=== PATIENT | male | born 1995 | race Caucasian/White ===

== ENCOUNTER 2016-06-25 14:40 | Emergency (ER) | payer OTHER ==
[2016-06-25 17:04] LABS: BASO % 0.2 % (0.0-1.0); EOS # 0.1 K/mm3 (0.0-0.50); EOS % 1.2 % (0.0-3.0); LARGE UNSTAINED CELL # 0.1 K/mm3 (0.0-0.4); LARGE UNSTAINED CELL % 1.2 % (0.0-4.0); LYMPH # 2.2 K/mm3 (1.5-6.5); LYMPH % 23.2 % (24.0-44.0); MEAN CORPUSCULAR HEMOGLOBIN 30.2 pg (27.0-33.0); MEAN CORPUSCULAR HGB CONC 34.7 g/dl (32.0-36.5); MEAN CORPUSCULAR VOLUME 86.8 fl (80.0-96.0); MONO # 0.4 K/mm3 (0.0-0.8); NEUTROPHILS # 6.5 K/mm3 (1.8-7.7); NEUTROPHILS % 70.2 % (36.0-66.0); PLATELET COUNT, AUTOMATED 350 k/mm3 (150-450); RED CELL DISTRIBUTION WIDTH 12.1 % (11.5-14.5); WHITE BLOOD COUNT 9.3 K/mm3 (4.0-10.0)
--- NOTE | 2016-06-25 17:09 | REP ---
Clinical: Abdominal pain. Technique: Single supine view of the abdomen and pelvis. Findings: Bowel gas pattern is nonspecific. No organomegaly. No abnormal calcifications. Skeletal structures are intact. Impression: Nonspecific abdominal radiograph. Signed by Ignacio Hong MD 06/25/2016 05:00 P
[2016-06-25 17:25] LABS: ALBUMIN/GLOBULIN RATIO 1.47 (1.00-1.93); ALKALINE PHOSPHATASE 94 U/L (45-117); ALT/SGPT 34 U/L (12-78); ANION GAP 10 MEQ/L (8-16); AST/SGOT 16 U/L (15-37); BILIRUBIN,DIRECT 0.2 MG/DL (0.0-0.2); BILIRUBIN,TOTAL 0.6 MG/DL (0.2-1.0); BLOOD UREA NITROGEN 14 MG/DL (7-18); CALCIUM LEVEL 9.5 MG/DL (8.5-10.1); CARBON DIOXIDE LEVEL 27 MEQ/L (21-32); CHLORIDE LEVEL 101 MEQ/L (98-107); CREATININE FOR GFR 0.83 MG/DL (0.70-1.30); GLUCOSE, FASTING 91 MG/DL (70-105); POTASSIUM SERUM 4.2 MEQ/L (3.5-5.1); SODIUM LEVEL 138 MEQ/L (136-145); TOTAL PROTEIN 8.4 GM/DL (6.4-8.2)
--- NOTE | 2016-06-25 18:53 | EDDOCDS ---
Physician Documentation [facility] Name: Pascual Foster Age: 21 yrs Sex: Male : 1995 Arrival Date: 06/25/2016 Time: 14:40 Bed PR Private MD: NO PRIMARY PHYSICIAN, . Disposition: 06/25/16 18:42 Discharged to Home/Self Care. Impression: Generalized abdominal pain. - Condition is Stable. - Discharge Instructions: Abdominal Pain, Adult. - Medication Reconciliation, Local Pharmacy Hours, Work Release Form - 2 day form. - [facility] up[facility]; When: Call to arrange an appointment; Reason: Recheck today's complaints, Continuance of care. - Problem is new. - Symptoms are unchanged. Historical: - Allergies: no known allergies; - Home Meds: 1. Celexa 10 mg Oral tab 1 tab once daily 2. ropinirole 0.25 mg oral tab 1 tab daily 3. Tylenol 325 mg Oral tab 1 tab every 4-6 hours - PMHx: restless leg syndrome; Depression; - PSHx: oral surgery; - Social history: Smoking status: Patient uses tobacco products, current every day smoker. No barriers to communication noted, The patient speaks fluent Persian. - Family history: Not pertinent. - : The pt / caregiver states he / she is not on anticoagulants. Home medication list is obtained from the patient. - Exposure Risk Screening:: None identified. Vital Signs: 06/25 14:41 BP 174 / 84; Pulse 77; Resp 18; Temp 97.5; Pulse Ox 97% ; Weight 53.07 kg / 117 lbs; elp Height 5 ft. 5 in. (165.10 cm); 18:50 BP 141 / 89; Pulse 104; Resp 16; Temp 98.1(T); Pulse Ox 99% on R/A; Pain 8/10; mlb1 14:41 Body Mass Index 19.47 (53.07 kg, 165.10 cm) elp MDM: 16:41 CBC with Diff Ordered. EDMS 16:41 BMP Ordered. EDMS 16:41 US Abd Limited: r/o free fluid, inspect appendix if possible. thank you. Ordered. EDMS 16:43 Abdomen,Flat Plate (KUB) Ordered. EDMS 16:48 LIVER PROFILE Ordered. EDMS 17:34 CBC with Diff Reviewed. jk8 17:34 LIVER PROFILE Reviewed. jk8 17:34 BMP Reviewed. jk8 17:34 Abdomen,Flat Plate (KUB) Reviewed. jk8 Signatures: Dispatcher [employer] EDValentin Piña RN RN mlb1 Valentin Cruz PA PA mo1 Raquel DeviRN RN ms18 Yogi Nguyen PA-C PA-C jk8 The chart was reviewed and I authenticate all verbal orders and agree with the evaluation and treatment provided.Corrections: (The following items were deleted from the chart) 16:48 16:42 LIVER PROFILE+LAB ordered. EDMS EDMS MTDD
--- NOTE | 2016-06-25 18:53 | EDDOCDS ---
Nurse's Notes [facility] Name: Pascual Foster Age: 21 yrs Sex: Male : 1995 Arrival Date: 06/25/2016 Time: 14:40 Bed PR Private MD: NO PRIMARY PHYSICIAN, . Diagnosis: Generalized abdominal pain Presentation: 06/25 14:57 Presenting complaint: Patient states: that he was seen at urgent care today. Pt reports ms18 abdominal pain around his umbilicus and pt reports nausea. Risk factors: the patient reports not having a history of previous torsion. Adult Sepsis Screening: The patient does not have new or worsening altered mentation. Patient's respiratory rate is less than 22. Systolic blood pressure is greater than 100. Patient has a qSOFA score of 0- Negative Sepsis Screen. Suicide/Homicide risk assessment- the patient denies having any suicidal and/or homicidal ideations and does not present with any other emotional, behavioral or mental health complaints. Status: Patient is not a family service caseworker or dependent. Transition of care: patient was not received from another setting of care. 14:57 Acuity: MICHAEL Level 3 ms18 14:57 Method Of Arrival: Walkin/Carried/Asstd ms18 Triage Assessment: 15:00 General: Appears in no apparent distress, comfortable, Behavior is appropriate for age, ms18 cooperative. Pain: Location: umbilical area Pain currently is 4 out of 10 on a pain scale. HIV screening NA for this visit Offered previously. Neurological: No deficits noted. Respiratory: No deficits noted. GI: Abdomen is flat, Reports nausea. Derm: Skin is. Historical: - Allergies: no known allergies; - Home Meds: 1. Celexa 10 mg Oral tab 1 tab once daily 2. ropinirole 0.25 mg oral tab 1 tab daily 3. Tylenol 325 mg Oral tab 1 tab every 4-6 hours - PMHx: restless leg syndrome; Depression; - PSHx: oral surgery; - Social history: Smoking status: Patient uses tobacco products, current every day smoker. No barriers to communication noted, The patient speaks fluent Comoran. - Family history: Not pertinent. - : The pt / caregiver states he / she is not on anticoagulants. Home medication list is obtained from the patient. - Exposure Risk Screening:: None identified. Screenin:54 Screening information is obtained from the patient. Fall risk: No risks identified. ms18 Assistance ADL's: requires no assistance with activities of daily living. Abuse/DV Screen: The patient / caregiver reports he/she is: not in a situation that causes fear, pain or injury. Nutritional screening: No deficits noted. Advance Directives: There is no living will. home support is adequate. Assessment: 16:54 General: Appears in no apparent distress, comfortable, Behavior is appropriate for age, ms18 cooperative. Pain: Location: umbilical area. Neurological: No deficits noted. Respiratory: Airway is patent Respiratory effort is even, unlabored. GI: Abdomen is non- distended Reports nausea. Derm: Skin is pink, warm & dry. 18:49 General: Appears in no apparent distress, Behavior is agitated. Pain: Location: abdomen mlb1 and umbilical area Pain currently is 8 out of 10 on a pain scale. GI: Bowel sounds present X 4 quads. Abd is soft X 4 quads. Vital Signs: 14:41 BP 174 / 84; Pulse 77; Resp 18; Temp 97.5; Pulse Ox 97% ; Weight 53.07 kg; Height 5 ft. elp 5 in. (165.10 cm); 18:50 BP 141 / 89; Pulse 104; Resp 16; Temp 98.1(T); Pulse Ox 99% on R/A; Pain 8/10; mlb1 14:41 Body Mass Index 19.47 (53.07 kg, 165.10 cm) elp Vitals: 14:41 Log In Time: June 25, 2016 at 14:40. el ED Course: 14:41 Patient visited by Dotty Torres PCA. elp 14:41 NO PRIMARY PHYSICIAN, . is Private Physician. elp 14:41 Patient moved to Waiting elp 14:41 Patient moved to Pre RCE elp 14:42 Patient visited by Dotty Torres PCA. elp 14:58 Triage Initiated ms18 15:46 Patient moved to Triage 1 ms18 16:03 [facility] jk8 16:03 Diane Agosto MD is Attending Physician. jk8 16:03 Patient visited by Yogi Nguyen PA-C. jk8 16:50 Patient moved to TR4 rs6 16:50 LIVER PROFILE Sent. rs6 16:50 BMP Sent. rs6 16:50 CBC with Diff Sent. rs6 16:53 Patient visited by Cyndy Church PCA. rs6 16:54 The patient / caregiver is instructed regarding the plan of care and ED course. ms18 Accompanied by Family Member, Patient has correct armband on for positive identification. Property :Personal belongings accompany Pt. 17:28 Abdomen,Flat Plate (KUB) Returned. EDMS 17:38 Patient moved to Ultrasound hgl 18:01 Patient moved to TR4 hgl 18:04 PHCP role handed off by Yogi Nguyen PA-C mo1 18:04 Valentin Cruz PA is PHCP. mo1 18:06 Patient moved to TR2 ms18 18:37 Patient moved to PR ms18 18:42 [facility] is Referral Physician. mo1 18:49 No IV's were initiated during this patient's visit. No procedures done that require mlb1 assistance. Order Results: Lab Order: CBC with Diff; SPEC'M 06/25/16 16:50 Test: WHITE BLOOD COUNT; Value: 9.3; Range: 4.0-10.0; Units: K/mm3; Status: F Test: RED BLOOD COUNT; Value: 5.38; Range: 4.30-6.10; Units: M/mm3; Status: F Test: HEMOGLOBIN; Value: 16.2; Range: 14.0-18.0; Units: g/dl; Status: F Test: HEMATOCRIT; Value: 46.7; Range: 42.0-52.0; Units: %; Status: F Test: MEAN CORPUSCULAR VOLUME; Value: 86.8; Range: 80.0-96.0; Units: fl; Status: F Test: MEAN CORPUSCULAR HEMOGLOBIN; Value: 30.2; Range: 27.0-33.0; Units: pg; Status: F Test: MEAN CORPUSCULAR HGB CONC; Value: 34.7; Range: 32.0-36.5; Units: g/dl; Status: F Test: RED CELL DISTRIBUTION WIDTH; Value: 12.1; Range: 11.5-14.5; Units: %; Status: F Test: PLATELET COUNT, AUTOMATED; Value: 350; Range: 150-450; Units: k/mm3; Status: F Test: NEUTROPHILS %; Value: 70.2; Range: 36.0-66.0; Abnormal: Above high normal; Units: %; Status: F Test: LYMPH %; Value: 23.2; Range: 24.0-44.0; Abnormal: Below low normal; Units: %; Status: F Test: MONO %; Value: 4.0; Range: 0.0-5.0; Units: %; Status: F Test: EOS %; Value: 1.2; Range: 0.0-3.0; Units: %; Status: F Test: BASO %; Value: 0.2; Range: 0.0-1.0; Units: %; Status: F Test: LARGE UNSTAINED CELL %; Value: 1.2; Range: 0.0-4.0; Units: %; Status: F Test: NEUTROPHILS #; Value: 6.5; Range: 1.8-7.7; Units: K/mm3; Status: F Test: LYMPH #; Value: 2.2; Range: 1.5-6.5; Units: K/mm3; Status: F Test: MONO #; Value: 0.4; Range: 0.0-0.8; Units: K/mm3; Status: F Test: EOS #; Value: 0.1; Range: 0.0-0.50; Units: K/mm3; Status: F Test: BASO #; Value: 0.0; Range: 0.0-0.2; Units: K/mm3; Status: F Test: LARGE UNSTAINED CELL #; Value: 0.1; Range: 0.0-0.4; Units: K/mm3; Status: F Lab Order: [facility]; SPEC'M 06/25/16 16:51 Test: GLUCOSE, FASTING; Value: 91; Range: 70-105; Units: MG/DL; Status: F Test: BLOOD UREA NITROGEN; Value: 14; Range: 7-18; Units: MG/DL; Status: F Test: CREATININE FOR GFR; Value: 0.83; Range: 0.70-1.30; Units: MG/DL; Status: F Test: SODIUM LEVEL; Value: 138; Range: 136-145; Units: MEQ/L; Status: F Test: POTASSIUM SERUM; Value: 4.2; Range: 3.5-5.1; Units: MEQ/L; Status: F Test: CHLORIDE LEVEL; Value: 101; Range: 98-107; Units: MEQ/L; Status: F Test: CARBON DIOXIDE LEVEL; Value: 27; Range: 21-32; Units: MEQ/L; Status: F Test: ANION GAP; Value: 10; Range: 8-16; Units: MEQ/L; Status: F Test: CALCIUM LEVEL; Value: 9.5; Range: 8.5-10.1; Units: MG/DL; Status: F Lab Order: LIVER PROFILE; SPEC'M 06/25/16 16:51 Test: AST/SGOT; Value: 16; Range: 15-37; Units: U/L; Status: F Test: ALT/SGPT; Value: 34; Range: 12-78; Units: U/L; Status: F Test: ALKALINE PHOSPHATASE; Value: 94; Range: 45-117; Units: U/L; Status: F Test: BILIRUBIN,TOTAL; Value: 0.6; Range: 0.2-1.0; Units: MG/DL; Status: F Test: BILIRUBIN,DIRECT; Value: 0.2; Range: 0.0-0.2; Units: MG/DL; Status: F Test: TOTAL PROTEIN; Value: 8.4; Range: 6.4-8.2; Abnormal: Above high normal; Units: GM/DL; Status: F Test: ALBUMIN; Value: 5.0; Range: 3.2-5.2; Units: GM/DL; Status: F Test: ALBUMIN/GLOBULIN RATIO; Value: 1.47; Range: 1.00-1.93; Status: F Radiology Order: Abdomen,Flat Plate (KUB) Test: Abdomen,Flat Plate (KUB) REASON FOR EXAMINATION: Abdomen Pain; Clinical: Abdominal pain.; ; Technique: Single supine view of the abdomen and pelvis.; ; Findings:; Bowel gas pattern is nonspecific. No organomegaly. No abnormal calcifications.; Skeletal structures are intact.; ; Impression:; Nonspecific abdominal radiograph.; ; ; Signed by; Ignacio Hong MD 06/25/2016 05:00 P; Outcome: 18:42 Discharge ordered by Provider. mo1 18:51 Discharge Assessment: Patient awake, alert and oriented x 3. No cognitive and/or mlb1 functional deficits noted. Patient verbalized understanding of disposition instructions. patient administered narcotics - no. The following High Risk Discharge criteria are identified: None. Discharged to home ambulatory, with parent. Condition: good. Discharge instructions given to patient, Instructed on discharge instructions, follow up and referral plans. Demonstrated understanding of instructions, Pt was receptive of discharge instructions/ teaching. No special radiology studies were completed. 18:52 Patient left the ED. mlb1 Signatures: Dispatcher [employer] EDCT Valentin Waite, RN RN mlb1 Clara, Valentin Cabrera PA PA mo1 Dotty Torres, LOAN REPRESENTATIVE LOAN REPRESENTATIVE cyndyp Raquel Devi RN RN ms18 Cyndy Church, LOAN REPRESENTATIVE LOAN REPRESENTATIVE rs6 Yogi Nguyen PA-C PA-C jk8 MTDD
--- NOTE | 2016-06-25 19:11 | REP ---
Clinical: Acute abdominal pain. Technique: Harrington scale ultrasound using curved array transducer. Findings: The liver and pancreas are normal in contour, size, and echogenicity without focal hepatic or pancreatic lesions identified. The gallbladder is normal without gallstones, wall thickening or pericholecystic fluid. No biliary ductal dilatation is appreciated, and the common bile duct measures 4.9 mm diameter. The right kidney is normal in reniform shape without hydronephrosis and measures 10.7 x 4.8 x 3.9 cm. No ascites. Visualized portions of the abdominal aorta normal. Impression: Normal right upper quadrant and gallbladder abdominal ultrasound. Signed by Ignacio Hong MD 06/25/2016 07:02 P
--- NOTE | 2016-06-27 19:53 | EDDOCDS ---
Physician Documentation [facility] Name: Pascual Foster Age: 21 yrs Sex: Male : 1995 Arrival Date: 06/25/2016 Time: 14:40 Bed PR Private MD: NO PRIMARY PHYSICIAN, . Disposition: 06/25/16 18:42 Discharged to Home/Self Care. Impression: Generalized abdominal pain. - Condition is Stable. - Discharge Instructions: Abdominal Pain, Adult. - Medication Reconciliation, Local Pharmacy Hours, Work Release Form - 2 day form. - Follow up: [facility]; When: Call to arrange an appointment; Reason: Recheck today's complaints, Continuance of care. - Problem is new. - Symptoms are unchanged. Historical: - Allergies: no known allergies; - Home Meds: 1. Celexa 10 mg Oral tab 1 tab once daily 2. ropinirole 0.25 mg oral tab 1 tab daily 3. Tylenol 325 mg Oral tab 1 tab every 4-6 hours - PMHx: restless leg syndrome; Depression; - PSHx: oral surgery; - Social history: Smoking status: Patient uses tobacco products, current every day smoker. No barriers to communication noted, The patient speaks fluent Japanese. - Family history: Not pertinent. - : The pt / caregiver states he / she is not on anticoagulants. Home medication list is obtained from the patient. - Exposure Risk Screening:: None identified. Vital Signs: 06/25 14:41 BP 174 / 84; Pulse 77; Resp 18; Temp 97.5; Pulse Ox 97% ; Weight 53.07 kg / 117 lbs; elp Height 5 ft. 5 in. (165.10 cm); 18:50 BP 141 / 89; Pulse 104; Resp 16; Temp 98.1(T); Pulse Ox 99% on R/A; Pain 8/10; mlb1 14:41 Body Mass Index 19.47 (53.07 kg, 165.10 cm) elp MDM: 16:41 CBC with Diff Ordered. EDMS 16:41 BMP Ordered. EDMS 16:41 US Abd Limited: r/o free fluid, inspect appendix if possible. thank you. Ordered. EDMS 16:43 Abdomen,Flat Plate (KUB) Ordered. EDMS 16:48 LIVER PROFILE Ordered. EDMS 17:34 CBC with Diff Reviewed. jk8 17:34 LIVER PROFILE Reviewed. jk8 17:34 BMP Reviewed. jk8 17:34 Abdomen,Flat Plate (KUB) Reviewed. jk8 19:10 Financial registration complete. ks16 19:10 [facility] Payment Agreement was scanned into [employer] and attached to record. ks16 21:30 T-Sheet-- Draft Copy was scanned into [employer] and attached to record. klr Signatures: Dispatcher [employer] EDMS Valentin Waite RN RN mlb1 Valentin Cruz PA PA mo1 Raquel Devi RN RN ms18 Yogi Nguyen, PAGoldyC PAGoldyC armidakAlpa Trinh, Reg Reg ks16 Giselle Sargent klr The chart was reviewed and I authenticate all verbal orders and agree with the evaluation and treatment provided.Corrections: (The following items were deleted from the chart) 16:48 16:42 LIVER PROFILE+LAB ordered. EDMS EDMS Attachments: 19:10 [facility] Payment Agreement ks16 21:30 T-Sheet-- Draft Copy klr Chart Complete MTDD
--- NOTE | 2016-06-27 19:53 | EDDOCDS ---
Physician Documentation [facility] Name: Pascual Foster Age: 21 yrs Sex: Male : 1995 Arrival Date: 06/25/2016 Time: 14:40 Bed PR Private MD: NO PRIMARY PHYSICIAN, . Disposition: 06/25/16 18:42 Discharged to Home/Self Care. Impression: Generalized abdominal pain. - Condition is Stable. - Discharge Instructions: Abdominal Pain, Adult. - Medication Reconciliation, Local Pharmacy Hours, Work Release Form - 2 day form. - Follow up: [facility]; When: Call to arrange an appointment; Reason: Recheck today's complaints, Continuance of care. - Problem is new. - Symptoms are unchanged. Historical: - Allergies: no known allergies; - Home Meds: 1. Celexa 10 mg Oral tab 1 tab once daily 2. ropinirole 0.25 mg oral tab 1 tab daily 3. Tylenol 325 mg Oral tab 1 tab every 4-6 hours - PMHx: restless leg syndrome; Depression; - PSHx: oral surgery; - Social history: Smoking status: Patient uses tobacco products, current every day smoker. No barriers to communication noted, The patient speaks fluent Sinhala. - Family history: Not pertinent. - : The pt / caregiver states he / she is not on anticoagulants. Home medication list is obtained from the patient. - Exposure Risk Screening:: None identified. Vital Signs: 06/25 14:41 BP 174 / 84; Pulse 77; Resp 18; Temp 97.5; Pulse Ox 97% ; Weight 53.07 kg / 117 lbs; elp Height 5 ft. 5 in. (165.10 cm); 18:50 BP 141 / 89; Pulse 104; Resp 16; Temp 98.1(T); Pulse Ox 99% on R/A; Pain 8/10; mlb1 14:41 Body Mass Index 19.47 (53.07 kg, 165.10 cm) elp MDM: 16:41 CBC with Diff Ordered. EDMS 16:41 BMP Ordered. EDMS 16:41 US Abd Limited: r/o free fluid, inspect appendix if possible. thank you. Ordered. EDMS 16:43 Abdomen,Flat Plate (KUB) Ordered. EDMS 16:48 LIVER PROFILE Ordered. EDMS 17:34 CBC with Diff Reviewed. jk8 17:34 LIVER PROFILE Reviewed. jk8 17:34 BMP Reviewed. jk8 17:34 Abdomen,Flat Plate (KUB) Reviewed. jk8 19:10 Financial registration complete. ks16 19:10 [facility] Payment Agreement was scanned into [employer] and attached to record. ks16 21:30 T-Sheet-- Draft Copy was scanned into [employer] and attached to record. klr Signatures: Dispatcher [employer] EDMS Valentin Waite RN RN mlb1 Valentin Cruz PA PA mo1 Raquel Devi RN RN ms18 Yogi Nguyen, PAGoldyC PAGoldyC armidakAlpa Trinh, Reg Reg ks16 Giselle Sargent klr The chart was reviewed and I authenticate all verbal orders and agree with the evaluation and treatment provided.Corrections: (The following items were deleted from the chart) 16:48 16:42 LIVER PROFILE+LAB ordered. EDMS EDMS Attachments: 19:10 [facility] Payment Agreement [email or web address] 21:30 T-Sheet-- Draft Copy klr Chart Complete MTDD
--- NOTE | 2016-06-27 19:53 | EDDOCDS ---
Nurse's Notes [facility] Name: Pascual Foster Age: 21 yrs Sex: Male : 1995 Arrival Date: 06/25/2016 Time: 14:40 Bed PR Private MD: NO PRIMARY PHYSICIAN, . Diagnosis: Generalized abdominal pain Presentation: 06/25 14:57 Presenting complaint: Patient states: that he was seen at urgent care today. Pt reports ms18 abdominal pain around his umbilicus and pt reports nausea. Risk factors: the patient reports not having a history of previous torsion. Adult Sepsis Screening: The patient does not have new or worsening altered mentation. Patient's respiratory rate is less than 22. Systolic blood pressure is greater than 100. Patient has a qSOFA score of 0- Negative Sepsis Screen. Suicide/Homicide risk assessment- the patient denies having any suicidal and/or homicidal ideations and does not present with any other emotional, behavioral or mental health complaints. Status: Patient is not a sales agent protective service or dependent. Transition of care: patient was not received from another setting of care. 14:57 Acuity: MICHAEL Level 3 ms18 14:57 Method Of Arrival: Walkin/Carried/Asstd ms18 Triage Assessment: 15:00 General: Appears in no apparent distress, comfortable, Behavior is appropriate for age, ms18 cooperative. Pain: Location: umbilical area Pain currently is 4 out of 10 on a pain scale. HIV screening NA for this visit Offered previously. Neurological: No deficits noted. Respiratory: No deficits noted. GI: Abdomen is flat, Reports nausea. Derm: Skin is. Historical: - Allergies: no known allergies; - Home Meds: 1. Celexa 10 mg Oral tab 1 tab once daily 2. ropinirole 0.25 mg oral tab 1 tab daily 3. Tylenol 325 mg Oral tab 1 tab every 4-6 hours - PMHx: restless leg syndrome; Depression; - PSHx: oral surgery; - Social history: Smoking status: Patient uses tobacco products, current every day smoker. No barriers to communication noted, The patient speaks fluent Kyrgyz. - Family history: Not pertinent. - : The pt / caregiver states he / she is not on anticoagulants. Home medication list is obtained from the patient. - Exposure Risk Screening:: None identified. Screenin:54 Screening information is obtained from the patient. Fall risk: No risks identified. ms18 Assistance ADL's: requires no assistance with activities of daily living. Abuse/DV Screen: The patient / caregiver reports he/she is: not in a situation that causes fear, pain or injury. Nutritional screening: No deficits noted. Advance Directives: There is no living will. home support is adequate. Assessment: 16:54 General: Appears in no apparent distress, comfortable, Behavior is appropriate for age, ms18 cooperative. Pain: Location: umbilical area. Neurological: No deficits noted. Respiratory: Airway is patent Respiratory effort is even, unlabored. GI: Abdomen is non- distended Reports nausea. Derm: Skin is pink, warm & dry. 18:49 General: Appears in no apparent distress, Behavior is agitated. Pain: Location: abdomen mlb1 and umbilical area Pain currently is 8 out of 10 on a pain scale. GI: Bowel sounds present X 4 quads. Abd is soft X 4 quads. Vital Signs: 14:41 BP 174 / 84; Pulse 77; Resp 18; Temp 97.5; Pulse Ox 97% ; Weight 53.07 kg; Height 5 ft. elp 5 in. (165.10 cm); 18:50 BP 141 / 89; Pulse 104; Resp 16; Temp 98.1(T); Pulse Ox 99% on R/A; Pain 8/10; mlb1 14:41 Body Mass Index 19.47 (53.07 kg, 165.10 cm) elp Vitals: 14:41 Log In Time: June 25, 2016 at 14:40. el ED Course: 14:41 Patient visited by Dotty Torres PCA. elp 14:41 NO PRIMARY PHYSICIAN, . is Private Physician. elp 14:41 Patient moved to Waiting elp 14:41 Patient moved to Pre RCE elp 14:42 Patient visited by Dotty Torres PCA. elp 14:58 Triage Initiated ms18 15:46 Patient moved to Triage 1 ms18 16:03 [facility] jk8 16:03 Diane Agosto MD is Attending Physician. jk8 16:03 Patient visited by Yogi Nguyen PA-C. jk8 16:50 Patient moved to TR4 rs6 16:50 LIVER PROFILE Sent. rs6 16:50 BMP Sent. rs6 16:50 CBC with Diff Sent. rs6 16:53 Patient visited by Cyndy Church PCA. rs6 16:54 The patient / caregiver is instructed regarding the plan of care and ED course. ms18 Accompanied by Family Member, Patient has correct armband on for positive identification. Property :Personal belongings accompany Pt. 17:28 Abdomen,Flat Plate (KUB) Returned. EDMS 17:38 Patient moved to Ultrasound hgl 18:01 Patient moved to TR4 hgl 18:04 PHCP role handed off by Yogi Nguyen PA-C mo1 18:04 Valentin Cruz PA is PHCP. mo1 18:06 Patient moved to TR2 ms18 18:37 Patient moved to PR / ms18 18:42 [facility] is Referral Physician. mo1 18:49 No IV's were initiated during this patient's visit. No procedures done that require mlb1 assistance. 19:10 [facility] [place] Payment Agreement was scanned into [employer] and attached to record. ks16 19:54 US Abd Limited: r/o free fluid, inspect appendix if possible. thank you. Returned. EDMS 21:30 T-Sheet-- Draft Copy was scanned into [employer] and attached to record. klr Order Results: Lab Order: CBC with Diff; SPEC'M 06/25/16 16:50 Test: WHITE BLOOD COUNT; Value: 9.3; Range: 4.0-10.0; Units: K/mm3; Status: F Test: RED BLOOD COUNT; Value: 5.38; Range: 4.30-6.10; Units: M/mm3; Status: F Test: HEMOGLOBIN; Value: 16.2; Range: 14.0-18.0; Units: g/dl; Status: F Test: HEMATOCRIT; Value: 46.7; Range: 42.0-52.0; Units: %; Status: F Test: MEAN CORPUSCULAR VOLUME; Value: 86.8; Range: 80.0-96.0; Units: fl; Status: F Test: MEAN CORPUSCULAR HEMOGLOBIN; Value: 30.2; Range: 27.0-33.0; Units: pg; Status: F Test: MEAN CORPUSCULAR HGB CONC; Value: 34.7; Range: 32.0-36.5; Units: g/dl; Status: F Test: RED CELL DISTRIBUTION WIDTH; Value: 12.1; Range: 11.5-14.5; Units: %; Status: F Test: PLATELET COUNT, AUTOMATED; Value: 350; Range: 150-450; Units: k/mm3; Status: F Test: NEUTROPHILS %; Value: 70.2; Range: 36.0-66.0; Abnormal: Above high normal; Units: %; Status: F Test: LYMPH %; Value: 23.2; Range: 24.0-44.0; Abnormal: Below low normal; Units: %; Status: F Test: MONO %; Value: 4.0; Range: 0.0-5.0; Units: %; Status: F Test: EOS %; Value: 1.2; Range: 0.0-3.0; Units: %; Status: F Test: BASO %; Value: 0.2; Range: 0.0-1.0; Units: %; Status: F Test: LARGE UNSTAINED CELL %; Value: 1.2; Range: 0.0-4.0; Units: %; Status: F Test: NEUTROPHILS #; Value: 6.5; Range: 1.8-7.7; Units: K/mm3; Status: F Test: LYMPH #; Value: 2.2; Range: 1.5-6.5; Units: K/mm3; Status: F Test: MONO #; Value: 0.4; Range: 0.0-0.8; Units: K/mm3; Status: F Test: EOS #; Value: 0.1; Range: 0.0-0.50; Units: K/mm3; Status: F Test: BASO #; Value: 0.0; Range: 0.0-0.2; Units: K/mm3; Status: F Test: LARGE UNSTAINED CELL #; Value: 0.1; Range: 0.0-0.4; Units: K/mm3; Status: F Lab Order: [facility]; SPEC'M 06/25/16 16:51 Test: GLUCOSE, FASTING; Value: 91; Range: 70-105; Units: MG/DL; Status: F Test: BLOOD UREA NITROGEN; Value: 14; Range: 7-18; Units: MG/DL; Status: F Test: CREATININE FOR GFR; Value: 0.83; Range: 0.70-1.30; Units: MG/DL; Status: F Test: SODIUM LEVEL; Value: 138; Range: 136-145; Units: MEQ/L; Status: F Test: POTASSIUM SERUM; Value: 4.2; Range: 3.5-5.1; Units: MEQ/L; Status: F Test: CHLORIDE LEVEL; Value: 101; Range: 98-107; Units: MEQ/L; Status: F Test: CARBON DIOXIDE LEVEL; Value: 27; Range: 21-32; Units: MEQ/L; Status: F Test: ANION GAP; Value: 10; Range: 8-16; Units: MEQ/L; Status: F Test: CALCIUM LEVEL; Value: 9.5; Range: 8.5-10.1; Units: MG/DL; Status: F Lab Order: LIVER PROFILE; SPEC'M 06/25/16 16:51 Test: AST/SGOT; Value: 16; Range: 15-37; Units: U/L; Status: F Test: ALT/SGPT; Value: 34; Range: 12-78; Units: U/L; Status: F Test: ALKALINE PHOSPHATASE; Value: 94; Range: 45-117; Units: U/L; Status: F Test: BILIRUBIN,TOTAL; Value: 0.6; Range: 0.2-1.0; Units: MG/DL; Status: F Test: BILIRUBIN,DIRECT; Value: 0.2; Range: 0.0-0.2; Units: MG/DL; Status: F Test: TOTAL PROTEIN; Value: 8.4; Range: 6.4-8.2; Abnormal: Above high normal; Units: GM/DL; Status: F Test: ALBUMIN; Value: 5.0; Range: 3.2-5.2; Units: GM/DL; Status: F Test: ALBUMIN/GLOBULIN RATIO; Value: 1.47; Range: 1.00-1.93; Status: F Radiology Order: US Abd Limited: r/o free fluid, inspect appendix if possible. thank you. Test: US Abd Limited: r/o free fluid, inspect appendix if possible. thank you. REASON FOR EXAMINATION: Abdomen Pain; Clinical: Acute abdominal pain.; ; Technique: Harrington scale ultrasound using curved array transducer.; ; Findings: The liver and pancreas are normal in contour, size, and echogenicity; without focal hepatic or pancreatic lesions identified. The gallbladder is; normal without gallstones, wall thickening or pericholecystic fluid. No biliary; ductal dilatation is appreciated, and the common bile duct measures 4.9 mm; diameter. The right kidney is normal in reniform shape without hydronephrosis; and measures 10.7 x 4.8 x 3.9 cm. No ascites. Visualized portions of the; abdominal aorta normal.; ; Impression:; Normal right upper quadrant and gallbladder abdominal ultrasound.; ; ; Signed by; Ignacio Hong MD 06/25/2016 07:02 P; Radiology Order: Abdomen,Flat Plate (KUB) Test: Abdomen,Flat Plate (KUB) REASON FOR EXAMINATION: Abdomen Pain; Clinical: Abdominal pain.; ; Technique: Single supine view of the abdomen and pelvis.; ; Findings:; Bowel gas pattern is nonspecific. No organomegaly. No abnormal calcifications.; Skeletal structures are intact.; ; Impression:; Nonspecific abdominal radiograph.; ; ; Signed by; Ignacio Hong MD 06/25/2016 05:00 P; Outcome: 18:42 Discharge ordered by Provider. mo1 18:51 Discharge Assessment: Patient awake, alert and oriented x 3. No cognitive and/or mlb1 functional deficits noted. Patient verbalized understanding of disposition instructions. patient administered narcotics - no. The following High Risk Discharge criteria are identified: None. Discharged to home ambulatory, with parent. Condition: good. Discharge instructions given to patient, Instructed on discharge instructions, follow up and referral plans. Demonstrated understanding of instructions, Pt was receptive of discharge instructions/ teaching. No special radiology studies were completed. 18:52 Patient left the ED. mlb1 Signatures: Dispatcher [employer] EDNV Valentin Waite RN RN mlb1 Chris Elizabeth Michael, PA PA mo1 Dotty Torres, DIRECTOR OF FINANCE DIRECTOR OF FINANCE Raquel Crabtree RN RN ms18 Cyndy Church, DIRECTOR OF FINANCE DIRECTOR OF FINANCE rs6 Yogi Nguyen PA-C PAShamika jk8 Alpa Jacobson, Reg Reg ks16 Giselle Sargent kldori Chart Complete MTDD
== END 2016-06-25 18:52 | disposition home or self-care (01) ==
LOC: M ED 14:40
DX: R10.84 Generalized abdominal pain (principal); G25.81 Restless legs syndrome; F32.9 Major depressive disorder, single episode, unspecified; F17.200 Nicotine dependence, unspecified, uncomplicated; Z79.899 Other long term (current) drug therapy

== ENCOUNTER → 2016-06-30 | Outpatient (REF) | payer OTHER ==
[2016-06-30 18:47] LABS: ALBUMIN 4.5 GM/DL (3.2-5.2); ALBUMIN/GLOBULIN RATIO 1.41 (1.00-1.93); ALKALINE PHOSPHATASE 83 U/L (45-117); ALT/SGPT 24 U/L (12-78); AMYLASE 60 U/L (25-115); ANION GAP 7 MEQ/L (8-16); AST/SGOT 10 U/L (15-37); BILIRUBIN,TOTAL 0.5 MG/DL (0.2-1.0); BLOOD UREA NITROGEN 13 MG/DL (7-18); CARBON DIOXIDE LEVEL 30 MEQ/L (21-32); CHLORIDE LEVEL 105 MEQ/L (98-107); CREATININE FOR GFR 0.85 MG/DL (0.70-1.30); GLUCOSE, FASTING 64 MG/DL (70-105); POTASSIUM SERUM 4.1 MEQ/L (3.5-5.1); SODIUM LEVEL 142 MEQ/L (136-145); TOTAL PROTEIN 7.7 GM/DL (6.4-8.2)
[2016-06-30 18:48] LABS: BASO % 0.3 % (0.0-1.0); EOS # 0.3 K/mm3 (0.0-0.50); EOS % 3.1 % (0.0-3.0); LARGE UNSTAINED CELL # 0.1 K/mm3 (0.0-0.4); LARGE UNSTAINED CELL % 1.3 % (0.0-4.0); LYMPH # 2.5 K/mm3 (1.5-6.5); LYMPH % 28.8 % (24.0-44.0); MEAN CORPUSCULAR HEMOGLOBIN 29.4 pg (27.0-33.0); MEAN CORPUSCULAR VOLUME 89.2 fl (80.0-96.0); MONO # 0.5 K/mm3 (0.0-0.8); MONO % 6.1 % (0.0-5.0); NEUTROPHILS # 5.2 K/mm3 (1.8-7.7); NEUTROPHILS % 60.3 % (36.0-66.0); PLATELET COUNT, AUTOMATED 296 k/mm3 (150-450); RED CELL DISTRIBUTION WIDTH 12.2 % (11.5-14.5); WHITE BLOOD COUNT 8.6 K/mm3 (4.0-10.0)
== END ==
LOC: M SFHCLERA 09:44
PROVIDERS: ATTEND Family Medicine
DX: R10.33 Periumbilical pain (principal)